=== PATIENT | male | born 1960 | race Caucasian/White ===

== ENCOUNTER 2019-08-04 15:04 | Emergency (ER) | payer OTHER, MEDICAID ==
[~2019-08-04] VITALS: Ht 188 cm; Wt 104.4 kg
[~2019-08-04 15:04] MED LIST: ACETAZOLAMIDE250 M2 PO; ADDERALL 12.512.5 MG PO; CLONIDINE0.1 PO; LAMICTAL 25 MG25 M1 PO; PHENOBARBITAL32.4 M2 PO; VENLAFAXINE H37.5 M1 PO; VITAMIN B-12500 MCG PO
[2019-08-04 15:48] LABS: ABSOLUTE EOSINOPHILS 0.1 thou/uL (0.0-0.7); ABSOLUTE LYMPHOCYTES 1.4 thou/uL (0.8-5.3); ABSOLUTE MONOCYTES 0.5 thou/uL (0.0-1.2); ABSOLUTE NEUTROPHILS 4.2 thou/uL (1.6-8.1); BASOPHILS 0.5 %; EOSINOPHILS 1.6 %; HEMATOCRIT 41.5 % (42.0-52.0); HEMOGLOBIN 14.5 gm/dL (14.0-18.0); LYMPHOCYTES 22.2 %; MCH 32.1 pg (26.0-34.0); MCHC 35.1 g/dL (28.0-37.0); MCV 91.7 fL (80.0-100.0); MONOCYTES 7.6 %; MPV 7.1 fl. (7.2-11.1); NUCLEATED RBCS 0 /100WBC; PLATELET COUNT* 241 thou/uL (150-400); POLYS 68.1 %; RBC 4.53 mil/uL (4.50-6.00); WBC 6.2 thou/uL (4.0-11.0)
[2019-08-04 15:57] LABS: CALCIUM 8.4 mg/dL (8.5-10.1); CREATININE 0.6 mg/dL (0.6-1.3); POTASSIUM 3.8 mmol/L (3.5-5.1)
[2019-08-04 16:02] LABS: ALBUMIN 3.6 g/dL (3.4-5.0); TOTAL BILIRUBIN 0.2 mg/dL (<0.1-1.0); TOTAL PROTEIN 7.1 g/dL (6.4-8.2)
[2019-08-04 16:06] LABS: ACETAMINOPHEN < 2 ug/mL (10-30); ALCOHOL < 10 mg/dL (<10); SALICYLATE < 2.8 mg/dL (2.8-20.0)
[2019-08-04 18:02] LABS: URINE BILIRUBIN NEGATIVE (Negative); URINE BLOOD NEGATIVE (Negative); URINE CLARITY CLEAR; URINE COLOR YELLOW; URINE GLUCOSE-RANDOM NEGATIVE (Negative); URINE KETONES NEGATIVE (Negative); URINE LEUKOCYTES-REFLEX NEGATIVE (Negative); URINE NITRITE-REFLEX NEGATIVE (Negative); URINE PROTEIN NEGATIVE (Negative); URINE SPECIFIC GRAVITY 1.015 (1.005-1.030); URINE UROBILINOGEN 0.2 E.U./dl (0.2-1.0)
[2019-08-04 18:13] LABS: AMP/METHAMP Negative (Negative); BARBITURATES POSITIVE (Negative); BENZODIAZEPINES Negative (Negative); COCAINE Negative (Negative); METHADONE Negative (Negative); OPIATES Negative (Negative); PCP Negative (Negative); THC Negative (Negative)
[2019-08-04 22:00] VITALS: BP 139/73
[2019-08-05] MEDS ORDERED: CATAPRES0.1 MG PO (12:19)
[2019-08-05] MEDS ORDERED: LAMOTRIGINE25 MG PO (12:21)
--- NOTE | 2019-08-05 15:37 | EKG ---
[place] [address] ELECTROCARDIOGRAM REPORT Name: KARSTEN ROUSE Room: [facility]#: [id number] Admission: 08/04/19 Attend Phys: Discharge: 08/04/19 Date of : 62 Date of Service: 08/04/191954 Report #: [id number] THIS REPORT FOR: //name// [facility] ED Test Date: 2019-08-04 Test Time: 19:55:05 Pat Name: KARSTEN ROUSE Department: Room: Gender: Sales Utility Representative: : 1960 Requested By: Nanette Carter Order Number: [id number] MD: David Patel Measurements Intervals [place] Rate: 68 P: 36 UT: 206 QRS: -80 QRSD: 167 T: 29 QT: 436 QTc: 464 Interpretive Statements Sinus rhythm Borderline prolonged UT interval RBBB and LAFB Compared to ECG 12/22/2016 14:07:44 No significant changes Electronically Signed On 08-05-2019 15:36:59 CDT by David Patel [email or web address] <ELECTRONICALLY SIGNED> By: David Patel MD, [facility] 08/05/19 1536 54 54 David Patel MD, [facility] /EPI
== END 2019-08-04 22:00 | disposition short-term general hospital (02) ==
LOC: M.ERS 15:04
PROVIDERS: Emergency Medicine Emergency Medical Services
DX: F22 Delusional disorders (principal); I10 Essential (primary) hypertension; E11.9 Type 2 diabetes mellitus without complications; J45.909 Unspecified asthma, uncomplicated; Z79.899 Other long term (current) drug therapy

== ENCOUNTER 2019-12-23 14:38 | Emergency (ER) | payer OTHER, MEDICAID ==
[~2019-12-23] VITALS: Ht 193 cm; Wt 147.4 kg
[~2019-12-23 14:38] MED LIST changes: +CATAPRES0.1 MG PO; +LAMICTAL 25 MG25 MG PO; +LAMOTRIGINE25 MG PO; +RISPERDAL2 MG PO; +VITAMIN D325 MC1 PO
[2019-12-23 14:48] VITALS: BP 143/82
[2019-12-23 15:12] LABS: ABSOLUTE EOSINOPHILS 0.1 thou/uL (0.0-0.7); ABSOLUTE LYMPHOCYTES 1.8 thou/uL (0.8-5.3); ABSOLUTE MONOCYTES 0.5 thou/uL (0.0-1.2); ABSOLUTE NEUTROPHILS 3.9 thou/uL (1.6-8.1); BASOPHILS 0.4 %; EOSINOPHILS 1.9 %; HEMATOCRIT 39.9 % (42.0-52.0); HEMOGLOBIN 13.2 gm/dL (14.0-18.0); LYMPHOCYTES 28.1 %; MCH 30.1 pg (26.0-34.0); MCHC 33.2 g/dL (28.0-37.0); MCV 90.9 fL (80.0-100.0); MONOCYTES 7.9 %; MPV 7.1 fl. (7.2-11.1); NUCLEATED RBCS 0 /100WBC; PLATELET COUNT* 213 thou/uL (150-400); POLYS 61.7 %; RBC 4.39 mil/uL (4.50-6.00); RDW-CV 14.8 % (10.5-14.5); WBC 6.3 thou/uL (4.0-11.0)
[2019-12-23 15:16] LABS: CREATININE 0.6 mg/dL (0.6-1.3)
[2019-12-23 15:20] LABS: ALBUMIN 3.3 g/dL (3.4-5.0); TOTAL BILIRUBIN 0.2 mg/dL (<0.1-1.0); TOTAL PROTEIN 6.8 g/dL (6.4-8.2)
[2019-12-23 15:31] LABS: URINE BILIRUBIN NEGATIVE (Negative); URINE BLOOD NEGATIVE (Negative); URINE CLARITY CLEAR; URINE COLOR YELLOW; URINE GLUCOSE-RANDOM NEGATIVE (Negative); URINE KETONES NEGATIVE (Negative); URINE LEUKOCYTES-REFLEX NEGATIVE (Negative); URINE NITRITE-REFLEX NEGATIVE (Negative); URINE PROTEIN NEGATIVE (Negative); URINE UROBILINOGEN 0.2 E.U./dl (0.2-1.0)
[2019-12-23 15:33] LABS: ACETAMINOPHEN < 2 ug/mL (10-30); ALCOHOL < 10 mg/dL (<10); SALICYLATE < 2.8 mg/dL (2.8-20.0)
[2019-12-23 15:39] LABS: AMP/METHAMP Negative (Negative); BARBITURATES POSITIVE (Negative); BENZODIAZEPINES Negative (Negative); COCAINE Negative (Negative); METHADONE Negative (Negative); OPIATES Negative (Negative); PCP Negative (Negative); THC Negative (Negative)
--- NOTE | 2019-12-23 17:06 | EKG ---
[place] [address] ELECTROCARDIOGRAM REPORT Name: KARSTEN ROUSE Room: [facility]#: [id number] Admission: 12/23/19 Attend Phys: Discharge: Date of : 62 Date of Service: 12/23/19 1534 Report #: [id number] THIS REPORT FOR: //name// [facility] ED Test Date: 2019-12-23 Test Time: 15:34:47 Pat Name: KARSTEN ROUSE Department: Room: [facility] Gender: Cobol Programmer: : 1960 Requested By: Cirilo Cherry Order Number: [id number] MD: Michael Scanlon Measurements Intervals [place] Rate: 63 P: 48 ND: 202 QRS: -77 QRSD: 159 T: 17 QT: 421 QTc: 431 Interpretive Statements Sinus rhythm Borderline prolonged ND interval RBBB and LAFB Baseline wander in lead(s) I,III,aVL,V1 Compared to ECG 08/04/2019 19:55:05 No significant changes Electronically Signed On 12-23-2019 17:05:47 CHILD CARE ASSOCIATE by Michael Scanlon [email or web address] <ELECTRONICALLY SIGNED> By: Michael Scanlon MD, FACC 12/23/19 1705 1534 1534 Michael Scanlon MD, FAC /EPI
--- NOTE | 2019-12-23 18:15 | NUR ---
SOPHIA FROM THE DEPARTMENT OF HEALTH AND SENIOR SERVICES CALLED ASKING ABOT WHETHER OR NOT JAYNA HAD BEEN IN TOUCH WITH THE HOSPITAL. THIS NURSE PASSED ON THAT JAYNA STATED HE WOULD BE DISCUSSING THE SITUATION WITH HIS STAFF, AND THAT THEY WOULD CONTACT EMILY THORPE WHO WAS IDENTIFIED THE GUARDIAN OF THIS PATIENT.
--- NOTE | 2019-12-23 19:14 | NUR ---
PHONE CALL RECIEVED FROM JAYNA HENRY, WHO IS LOOKING FOR PLACEMENT FOR THIS PATIENT. GENERALIZED REPORT ABOUT THIS PATIENT WAS GIVEN. JAYNA WAS CONCERNED ABOUT WHETHER OR NOT THE PATIENT WAS ABLE TO MAKE HIS OWN CHOICES.THIS NURSE EXPLAINED THAT THE PATIENT WAS A SAM OF THE STATE. JAYNA STATED HE WOULD MAKE SOME PHONE CALLS AND BE IN TOUCH.
--- NOTE | 2019-12-23 21:29 | NUR ---
JAYNA CALVO CALLED TO CONFIRM THAT THE PATIENT WAS APPROPRIATE FOR SHELTER PLACEMENT, AND VERIFIED HIS HEIGHT AND WEIGHT. JAYNA STATED THAT THERE WAS A GOOD POSSIBILITY FOR PLACEMENT IF THEY CAN FIND A BED TONIGHT.
[2019-12-24 05:25] LABS: HEMATOCRIT 39.4 % (42.0-52.0); HEMOGLOBIN 13.4 gm/dL (14.0-18.0); MCH 30.5 pg (26.0-34.0); MCV 89.7 fL (80.0-100.0); MPV 7.1 fl. (7.2-11.1); RBC 4.39 mil/uL (4.50-6.00); RDW-CV 14.6 % (10.5-14.5); WBC 6.9 thou/uL (4.0-11.0)
[2019-12-24 05:35] LABS: CALCIUM 8.4 mg/dL (8.5-10.1); CREATININE 0.5 mg/dL (0.6-1.3); POTASSIUM 3.6 mmol/L (3.5-5.1)
[2019-12-24 05:44] LABS: ALBUMIN 3.4 g/dL (3.4-5.0); MAGNESIUM 1.9 mg/dL (1.8-2.4); TOTAL BILIRUBIN 0.3 mg/dL (<0.1-1.0); TOTAL PROTEIN 6.9 g/dL (6.4-8.2)
--- NOTE | 2019-12-24 09:15 | NUR ---
SPOKE WITH ROMEO LOCKHART, DEPUTY CASTING TECHNICIAN LASTING FLOORWORKER FOR PT. CHANTELLE STATED THAT THERE IS NOTHING SHE CAN DO TO ASSIST THE PT'S PLACEMENT TO ANY OTHER FACILITY AT THIS TIME & THEIR "RESOURCES ARE LIMITED" WELL NOT "HAVING ANY MONEY" TO "DO ANYTHING". CHANTELLE STATED SHE DOESN'T KNOW WHO "JAYNA CALVO" IS & DOESN'T KNOW WHAT HE WAS WORKING ON FOR THIS PT. CHANTELLE STATED THAT IT'S THE ER'S RESPONSIBILITY TO MAKE SURE THE PT DOESN'T RETURN TO THE "HORRIBLE" LIVING CONDITIONS HE WAS FOUND IN. THIS NURSE ATTEMPTED TO EDUCATE CHANTELLE REGARDING ER'S CAPABILITIES & HOW THE PT CAME TO OUR FACILITY. ATTEMPTED TO EDUCATE CHANTELLE REGARDING HOW JAYNA WAS "WORKING" ON PLACEMENT FOR PT. THIS NURSE ASKED FOR CONTACT INFORMATION FOR RETURN CALLS TO CHANTELLE. CHANTELLE REFUSED TO GIVE CONTACT INFORMATION SHE STATED "WE CAN TALK ALL DAY ABOUT THIS (PT) & THE ANSWER IS STILL THE SAME". CHANTELLE STATED ER COULD CALL THE AFTER HOURS NUMBER & SPEAK WITH SOMEONE ELSE. ADVISED CHANTELLE THAT CONSISTANT COMMUNICATION WITH THE SAME CASTING TECHNICIAN IS CRUCIAL FOR PT. CHANTELLE GAVE CONTACT INFORMATION BUT WANTED HER NUMBER OMITTED FROM THIS NOTE. INFORMATION UPDATED TO CHARGE NURSE & PROVIDER.
--- NOTE | 2019-12-24 09:40 | NUR ---
ROMEO, ADULT PROTECTIVE FLOOR TECHNICIAN WITH THE DEPARTMENT OF HEALTH & SENIOR SERVICES CALLED FOR AN UPDATE RE: PT STATUS. ROMEO ADVISED THAT JAYNA WAS WORKING THROUGHOUT THE NOC TO SECURE PLACEMENT FOR PT. PT QUALIFIES FOR LEVEL 2 CARE & IS PLANNING TO HAVE PT PICKED UP TODAY FROM THIS ER. ROMEO STATED SHE HAS "PUT A CALL IN" TO JAYNA SO SHE CAN DETERMINE WHAT IS STILL NEEDED BEFORE PT CAN TRANSFER. AT THIS TIME, ROMEO DOES NOT BELIEVE PT NEEDS PSYCH EVAL. CONTACT INFORMATION FOR ROMEO ADULT PROCTECTIVE FLOOR TECHNICIAN FOR THE DEPARTMENT OF HEALTH & SENIOR SERVICES: [phone]. CHARGE NURSE UPDATED ON STATUS.
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
--- NOTE | 2019-12-24 10:49 | NUR ---
Late entry. Spoke with LEAH Collazo at 1701 on 12/23/19. LEAH Vale provide same details as previous note but stated that she was waiting on waiver for funding to place patient in an ISL, however she found out today that the patient is on the waitlist but not for an ISL but rather for a CM through the state. LEAH Collazo expressed her frustrations with the court stating that the waiver was for an ISL but that was not true. LEAH Collazo states that the plan is to get him placed somewhere because the friend the patient lives with does not want the patient to return to his house and patient doesn't have anywhere to go at this time. His mother is and his cousin who was going to care for him, has now been placed in an AL facility. LEAH Collazo states that the patient is declining in his health. Patient now has DM, can barely move due to his increased weight gain and he cannot bath himself. Per LEAH Collazo, the patient's guardian will not give consent for the patient to return home but guardian will consent to a safe place. Per LEAH Collazo, she has already reached out to her superiors to figure out next stesp but guardian will not consent to any of the places suggested. Suggestions, per Vale include a homeless penitentiary and respite care but guardian will not consent to those options because it is not deemed safe for such a low functioning patient. LEAH Collazo states that the Dir of [facility] and herself have no other options at this time but will "do whatever is best for the patient". LEAH Collazo states that she is hoping that "we can keep the patient through the weekend until the patient is placed". CM Wheelchair Van Operator First Responder states that she will reach out to the Regional Dir for Case Managment for next steps and further guidance and that manager office services will reach out to LEAH Collazo. CM Wheelchair Van Operator First Responder calls Regional Dir of Case Management at [phone] and provided the above detail to her. She states that it is the states responsibility to figure out placement rather than ours but she wants to confirm that with our legal team. Per Legal (Meghan) "it is not our responsibility to find placement for this patient as there is no medical neccessity for admission". Both CM Wheelchair Van Operator First Responder and Regional Dir of call LEAH Collazo back to provide this update. LEAH Collazo states that she doesn't know whatelse can be done for this patient as her job is only to provide consents. She is not someone that works on placement but she has helped to find a few options with no luck. LEAH Collazo states again that she willing to help but doesn't know what to do now that the patient is in our care. She states that in the 5 years she has been working for the state she has not had a hospital that would accept the patient and figure out placement. Reg Dir of CM reiterated that there is no medical necessity to admit the patient and that our legal team stated that it is the state's responsibility to figure out the best course of action for dishcarge. LEAH Vale continued to state that it isn't her job to do this but she will do whatever she is told to find placement for the patient if given options. Reg Dir of CM advised for LEAH Collazo to hotline patient for [facility] to get involved to help with placement. LEAH Vale understood and said she would hotline patient and provide follow up. LEAH Collazo contacted CM Wheelchair Van Operator First Responder at [phone] acknowledging that she hotlined the patient and [facility] will look into the case to figure out next steps and placement. She stated that they may or may not call back tonight. LEAH Collazo provided both her and the CM Wheelchair Van Operator First Responder's contact information for a return call. She also stated that contacted a friend of the cousin who was going to care for the patient to see if pehaps she could keep the patient through the weekend until placement is found but that friend did not answer. LEAH Collazo states that the friend is of no relation to the patient but rather someone who was willing to help financially prior to the cousin being admitted to an AL. CM Wheelchair Van Operator First Responder reached out the HS at [phone] stating that there has not been a return call from [facility] or LEAH Collazo. Both HS and CM Wheelchair Van Operator First Responder agree to place patient in a hospital bed to make the patient more comfortable through the evening and CM Wheelchair Van Operator First Responder will check back on the case in the morning. CM to continue to follow for safe dc planning.
--- NOTE | 2019-12-24 11:23 | NUR ---
Recieved call from O this morning at 0924 stating that the patient is still in the ED with no placement resolution. Call merged with HS and HS states that they need help figuring out the next steps for patient. CM Army Officer reached out to Dariana Dunlap (Architect Senior Hydrogeologist-ical Operations and Risk Management) [phone]. She advised that it is the states obligation to find placement for this patient due to no medical necessity for admission. She states that we are doing the right thing by keeping him comfortable until placement is found by the state. CNO and HS update. Reached out to LEAH Collazo at [phone] and recieved a return call at [phone]. CM Army Officer asked for an update on the case. LEAH Collazo states that Manuel has been working on this case all night to find placement and he was able to obtain a level 2 for the patient to go to a fci and or SNF. Manuel has since been replaced with Yusra who has been in contact with the [facility] but has run into complications with finding a place that has a large enough bed for the patient. LEAH Collazo expresses her concern about why [facility] hasn't done any of the work to find placement. CM Army Officer reiterated that per our legal team we are not responsible for placement since the patient is a guardian of the state and has no medical necessity for admission. LEAH Collazo begins to raise her voice over the phone stating that she "has never delt with any hospital that wouldn't do their job". CM Army Officer expresses the concern that she doesn't want to be arugumentative but is simply stating the facts per legal advisement. CM Army Officer advised LEAH Collazo that DIANE Vega was informed by Yusra that someone would come to pick the patient up today so if someone could let us know the time and location, the patient will be ready for roll picker. LEAH Collazo said she would reach out to Yusra for more clarity. Recieved a call back from LEAH Collazo at 1125 stating that Meghan from [facility] is working to find an accepting faciity. Once a facility has accepted she asked if we would be willing to fax over clinicals. LEAH Bañuelos agreed to do so by way of the ED staff if a fax number can be provided. LEAH Collazo states that they have no other records other than the pcp office records from yesterday. LEAH Collazo states that once she gets a fax number and location she will give either Silvia CONTRERAS a call back or the CM Army Officer. Silvia CONTRERAS updated with above information. Will await call back from LEAH Collazo for more information. LEAH nair to follow for safe dc planning.
--- NOTE | 2019-12-24 13:57 | NUR ---
Called LEAH Collazo back to inquire about if she had recieved any updates. Per LEAH Collazo she stated that she is waiting to hear back from Alis ([place]). Called Meghan at [phone] to obtain more information. Per Meghan she asked when did we want the patient discharged. Verbalized today. She also asked if we had any criteria to admit. Verbalized that there is no medical necessity for admission. Meghan asked if we could fax updated clinicals to [phone]. Reached out to DIANE Vega and advised her fax updated clinicals. She will send with attn: Meghan on the cover sheet and will include facesheet, progress notes, vitals, labs, imaging, etc.). CM Color Strainer to call Meghan in 20 mins to confirm receipt of the faxes. CM to continue to follow for safe dc planning.
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
--- NOTE | 2019-12-24 14:33 | NUR ---
Called Meghan from [facility] to inquire about receipt of fax. Meghan confirmed that she did recieve the fax and she is now collecting the faxes/emails sent to her with medical records from the patient's PCP office. Meghan states that she will send these records "up the ladder" for review and she will call the CM Yeast Cake Cutter back directly with an update once an answer is received. CM Yeast Cake Cutter will follow up with Meghan in 1 hour if no return call. CM Yeast Cake Cutter had to find Meghan's phone number to contact her directly to obtain fax number and initiate approval process and this was to be done by LEAH Collazo (see previous notes for more detail) but rather the CM Yeast Cake Cutter had to intercept to complete this task to ensure it was completed timely. CM to continue to follow for safe dc planning.
--- NOTE | 2019-12-24 15:55 | NUR ---
JOSE HENLEY CALLED RE: PT PLACEMENT. AFTER REPORT ABOUT PT & CARE NEEDS, LORY STATES SHE BELIEVES THE PT WOULD BE A GOOD FIT FOR [facility] [address]. LORY STATES SHE WOULD SET UP TRANSPORTATION WITH [facility] IN THE NEXT COUPLE HOURS. THIS NURSE VERBALIZED UNDERSTANDING. 1608; LORY CALLED BACK TO SPEAK WITH PT DIRECTLY TO ADVISE HIM OF THE SITUATION IN MORE DETAIL.
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
--- NOTE | 2019-12-24 17:33 | NUR ---
JOSE HERNANDEZON CALLED EXPRESSING CONCERN THAT SHE HAS BEEN UNABLE TO REACH STATE MERY LIGHT OF PT. FERN ATTEMPTED TO CALL 2X & LEFT VM MESSAGES WITH NO REPLY. LORY REQUESTED THIS NURSE TO ATTEMPT CONTACT WITH DIONY ROSA. THIS NURSE CONTACTED MOE. MOE ADVISED THAT WE (ER STAFF) HAVE NOT FOLLOWED THEIR PROTOCOLS/PROCEDURES REGARDING THEIR AFTER HOURS SERVICE. MOE INSTRUCTED THIS NURSE TO CONTACT THE AFTER HOURS SERVICE & NOT HER. ADVISED MOE OF LORY'S ATTEMPTS TO CONTACT HER REGARDING PLACEMENT OF PT AT [facility] & THE NEED FOR HER AUTHORIZATION TO BE PROVIDED TO JOSE IN ORDER TO FINALIZE THE TRANSFER. MOE STATED SHE WAS "WAITING ALL DAY FOR JOSE TO CALL ME BACK BUT HAVEN'T HEARD ANYTHING". ACKNOWLEDGED THAT JOSE ATTEMPTED CONTACT I HAVE & [facility] MACHINE OPERATOR HAS WITH NO REPLY. ADVISED PHONE NUMBER FOR MOE TO CONTACT LORY. MOE VERBALIZED UNDERSTANDING. REC'D CALL BACK FROM MOE. SHE STATED "WHOLE 'PROCESS' HAS BEEN CIRCUMVENTED & I THINK IT'S JUST GREAT". MOE ADVISED THAT [facility] HAS OFFICIALLY ACCEPTED PT & WILL BE SENDING TRANSPORTATION FOR HIM. VERBALIZED UNDERSTANDING THINK IT'S BEEN GREAT"
[2019-12-24 19:55] VITALS: BP 143/80
[2019-12-25 05:36] LABS: GLYCOHEMOGLOBIN (HGB A1C) 5.4 % (4.8-5.6)
== END 2019-12-24 19:55 | disposition home or self-care (01) ==
LOC: M.ERS 14:38 → M.TBA-ER 16:23 → M.ERS 16:23
PROVIDERS: Emergency Medicine Emergency Medical Services; Internal Medicine
DX: R63.5 Abnormal weight gain (principal); Z20.828 Contact with and (suspected) exposure to other viral communicable diseases; E11.9 Type 2 diabetes mellitus without complications; G40.909 Epilepsy, unspecified, not intractable, without status epilepticus; J45.909 Unspecified asthma, uncomplicated; I10 Essential (primary) hypertension; Z79.899 Other long term (current) drug therapy